=== PATIENT | male | born 1990 | race African-American/Black ===

== ENCOUNTER 2021-06-26 03:18 | Emergency (ER) | payer OTHER ==
[~2021-06-26] VITALS: Ht 167.6 cm; Wt 79.4 kg
[2021-06-26 03:56] LABS: PLATELET COUNT 356 K/uL (142-355)
[2021-06-26 04:08] LABS: PARTIAL THROMBOPLASTIN TIME 26.1 SECONDS (24.5-33.6)
[2021-06-26 06:00] VITALS: BP 128/81; TEMP 98.7
== END 2021-06-26 06:00 | disposition home or self-care (01) ==
LOC: ED 03:18
PROVIDERS: Family Medicine
DX: F45.8 Other somatoform disorders (principal); F15.90 Other stimulant use, unspecified, uncomplicated
CPT/HCPCS: 80053; 80307; 80320; 81000; 82150; 82550; 83690; 84484; 85027; 85379; 85610; 85730; 93005; 96360; 96361; 99284